=== PATIENT | female | born 1945 | race Caucasian/White ===

== ENCOUNTER → 2016-10-26 | Outpatient (CLI) | payer MEDICAID, MEDICARE | END | disposition home or self-care (01) | LOC: GMAH 10:04 | PROVIDERS: ATTEND Family Medicine | DX: E78.00 Pure hypercholesterolemia, unspecified (principal); N39.0 Urinary tract infection, site not specified ==

== ENCOUNTER → 2016-11-06 | Outpatient (CLI) | payer MEDICARE, MEDICAID ==
--- NOTE | 2016-11-06 10:58 | CT ---
EXAM DESCRIPTION: Lumbar Spine CLINICAL HISTORY: UNSPECIFIED FX OF SACRUM COMPARISON: 06 August 2016 TECHNIQUE: Transaxial images were obtained without intravenous contrast media. Sagittal and coronal reconstruction was performed. FINDINGS: Persistent mild anterolisthesis of L5 on S1 is observed.. A fracture of the S1 vertebral body is observed and remains essentially unchanged from the previous exam. Small nonobstructing right renal calculi are observed. Interbody fusion is observed at the L3-4 and L4-5 levels. Pedicle screw fusion is observed from L4 through S1 L1-2: Unremarkable. L2-3: Mild loss of disc height is observed. Ligamentous and facet joint hypertrophy are observed. There is a mild spinal stenosis present. It remains unchanged. L3-4: Interbody fusion is observed at this level. The fusion mass appears solid. No disc level pathology is detected though the imaging of this level is degraded by pedicle screw artifact. There is evidence of prior laminectomy. L4-5: Pedicle screw and interbody fusion is observed at this level. There is evidence of prior laminectomy. No disc level pathology is detected. The interbody fusion appears solid. No hardware failure is detected. L5-S1: A persistent anterolisthesis of L5 on S1 is observed. Pedicle screw fusion of the L5-S1 levels observed. There is loss of disc height at this level. I am unable to detect evidence of disc level pathology. Examination of the sacral fracture reveals slight evidence of interval healing. IMPRESSION: 1. Interbody fusion is observed at the L3-4 and L4-5 levels. 2. Pedicle screw fusion is observed from L4 through S1. 3. An S1 fractures observed. There has been minimal interval healing. 4. Anterolisthesis of L4-5 on S1 is observed. There is also mild anterolisthesis of the fracture at S1. Electronically signed by: Aaron Lockhart MD 11/06/2016 10:57 AM CDT
== END | disposition home or self-care (01) ==
LOC: CT 09:38
PROVIDERS: ATTEND Neurological Surgery
DX: S32.10XG Unspecified fracture of sacrum, subsequent encounter for fracture with delayed healing (principal)

== ENCOUNTER → 2016-12-01 | Outpatient (CLI) | payer MEDICARE ==
--- NOTE | 2016-12-03 09:43 | MAM ---
History: Well woman exam. Date of exam: 12/01/2016 Services provided: Bilateral full field digital screening mammography. CAD, the images were reviewed with R2 computer aided detection. FINDINGS: Glandular tissue is scattered glandular contour with increased retroareolar mammographic density. Study is compared with 2012 exam. No dominant mass, architectural distortion or clustered microcalcification. Radiodense material in the axillary soft tissues bilaterally is compatible with talc containing substance such as deodorant. IMPRESSION: Benign exam Recommendation: Routine annual mammography BIRAD CATEGORY: 2 BENIGN Electronically signed by: Agnes Byrd MD 12/03/2016 9:42 AM CDT
== END ==
LOC: MAMMO 13:30
PROVIDERS: ATTEND Family Medicine
DX: Z12.31 Encounter for screening mammogram for malignant neoplasm of breast (principal)

== ENCOUNTER → 2017-04-15 | Outpatient (CLI) | payer MEDICARE ==
--- NOTE | 2017-04-16 11:36 | RAD ---
EXAM DESCRIPTION: Elbow,Left 3 Views (accession [id number]), Forearm,Left (accession [id number]) CLINICAL HISTORY: 72 years Female, PAIN IN LEFT ELBOW COMPARISON: None. FINDINGS: The left forearm demonstrates no fractures. No acute bony abnormalities. Soft tissues are unremarkable. Elbows unremarkable no evidence of fractures. No joint effusion. There is a small enthesophyte at the biceps attachment site to the radius. IMPRESSION: Small enthesophyte to the distal attachment site of the biceps to the radius otherwise unremarkable forearm and elbow for age. Electronically signed by: Aaron Wen MD 04/16/2017 11:35 AM CDT
--- NOTE | 2017-04-16 11:36 | RAD ---
EXAM DESCRIPTION: Elbow,Left 3 Views (accession [id number]), Forearm,Left (accession [id number]) CLINICAL HISTORY: 72 years Female, PAIN IN LEFT ELBOW COMPARISON: None. FINDINGS: The left forearm demonstrates no fractures. No acute bony abnormalities. Soft tissues are unremarkable. Elbows unremarkable no evidence of fractures. No joint effusion. There is a small enthesophyte at the biceps attachment site to the radius. IMPRESSION: Small enthesophyte to the distal attachment site of the biceps to the radius otherwise unremarkable forearm and elbow for age. Electronically signed by: Aaron Wen MD 04/16/2017 11:35 AM CDT
== END ==
LOC: RAD 09:00
PROVIDERS: ATTEND Orthopaedic Surgery
DX: M79.632 Pain in left forearm (principal); M25.522 Pain in left elbow

== ENCOUNTER 2017-06-04 18:24 | Emergency (ER) | payer MEDICARE, MEDICAID ==
[2017-06-04] MEDS ORDERED: DEXTROSE 5% 1000ML 1,000 ML IVS PRN (18:34)
[2017-06-04] MEDS ORDERED: ACETAMINOPHEN 500 MG TAB PO ONE (18:34)
--- NOTE | 2017-06-04 18:37 | ED.PDOC ---
History of Present Illness - General Chief Complaint: Diabetic Complaint Stated Complaint: low blood sugar/almost passed out Time Seen by Provider: 06/04/17 18:27 Source: patient, RN notes reviewed, Vital Signs reviewed, EMS Exam Limitations: no limitations - History of Present Illness Initial Comments: Patient reports that @ ~16:30 her blood sugar dropped suddenly to 60. She became very diaphoretic, weak and felt like she was going to pass out. She took some oral glucose and ate 1/2 a peanut butter sandwich w/o improvement. Reports she barely made it over to her sisters house. When EMS arrived her blood sugar was 69. Currently she has a headache and feels weak. Fingerstick BS here was 79. Timing/Duration: 1-3 hours Severity: severe Improving Factors: nothing Worsening Factors: nothing Associated Symptoms: diaphoresis, headaches, malaise, shortness of breath, weakness Allergies/Adverse Reactions: Allergies Codeine Allergy (Severe, Verified 10/07/15 17:07) Sulfa Drugs Allergy (Severe, Verified 10/07/15 17:07) Morphine Adverse Reaction (Verified 02/02/16 19:31) "knocks patient out after too many doses" Home Medications: Ambulatory Orders Colestipol HCl 1 gm PO BID 03/08/14 Insulin Glargine [Lantus] 25 unit SC DAILY 03/08/14 Lisinopril 2.5 mg PO DAILY 03/08/14 Pravastatin Sodium [Pravachol] 20 mg PO BEDTIME 02/11/15 Review of Systems - Review of Systems Constitutional: States: diaphoresis, malaise, weakness EENTM: States: no symptoms reported Respiratory: States: short of breath Cardiology: States: no symptoms reported. Denies: chest pain Gastrointestinal/Abdominal: States: nausea. Denies: abdominal pain, vomiting Musculoskeletal: States: other - coccyx pain due to recent fracture Skin: States: no symptoms reported Neurological: States: headache, other - near-syncope Endocrine: States: excessive sweating All other Systems: No Change from Baseline Past Medical History (General) - Patient Medical History Hx Stroke: Yes Hx Cardiac Disorders: Yes Hx Congestive Heart Failure: No Hx Hypertension: Yes Hx Diabetes: Yes Hx MRSA: No - Vaccination History Hx Tetanus, Diphtheria Vaccination: Yes Hx Influenza Vaccination: No Hx Pneumococcal Vaccination: Yes Immunizations Up to Date: Yes - Social History Hx Tobacco Use: No Hx Chewing Tobacco Use: No Hx Alcohol Use: No Hx Substance Use: No Hx Substance Use Treatment: No Hx Depression: No Feels Threatened In Home Enviroment: No Feels Threatened In a Relationship: No Hx Physical Abuse: No Hx Emotional Abuse: No Hx Suspected Abuse: No - Activities of Daily Living Hospice Agency (if applicable):: None - Female History Patient is a Female of Child Bearing Age (10 -59 yrs old): No Patient : No Family Medical History - Family History Mother Family History: No Known Living Status: Physical Exam - Physical Exam General Appearance: Alert, Comfortable, No apparent distress, Well Developed, Well Groomed, Well Hydrated, Well Nourished Eye Exam: bilateral normal Ears, Nose, Throat: hearing grossly normal, normal ENT inspection Neck: supple, normal inspection Respiratory: lungs clear, normal breath sounds, no respiratory distress, no accessory muscle use Cardiovascular/Chest: normal peripheral pulses, regular rate, rhythm, no edema, no gallop, no murmur Peripheral Pulses: radial,right: 2+, radial,left: 2+, dorsalis pedis,right: 2+, dorsalis pedis,left: 2+ Gastrointestinal/Abdominal: normal bowel sounds, non tender, soft, no organomegaly Extremity: normal inspection, no pedal edema Neurologic: alert, normal mood/affect, oriented x 3 Skin Exam: diaphoresis Comments: Vital Signs 06/04/17 18:24 Temperature 97.8 F Pulse Rate [ 77 Right Brachial] Respiratory 20 Rate Blood Pressure 183/78 [Left Arm] O2 Sat by Pulse 100 Oximetry Progress - Progress Progress: 06/04/17 19:13 Now reports she is feeling nauseated. D5W running @ 150cc/hr. Will given Zofran 4mg IV 06/04/17 20:06 Repeat fasting blood sugar is 129. Will stop D5W and restart NS bolus started by EMS. Patient reports she is feeling a little better, just fatigued. 06/04/17 21:09 Patient is feeling better. Blood sugar 112. Gave orange juice and cookies. Will d/c home. Recommended something with protein and fat at home. - Results/Orders Results/Orders: Laboratory Tests 06/04/17 06/04/17 06/04/17 16:55 16:55 19:59 WBC 8.1 RBC 4.04 L Hgb 12.5 Hct 36.4 MCV 90.3 MCH 30.9 MCHC 34.3 RDW 12.8 Plt Count 295 MPV 7.7 Absolute Neuts (auto) 5.90 Absolute Lymphs (auto) 1.20 Absolute Monos (auto) 0.80 Absolute Eos (auto) 0.10 Absolute Basos (auto) 0.00 Neutrophils % 73.1 Lymphocytes % 15.1 L Monocytes % 10.4 H Eosinophils % 0.9 L Basophils % 0.5 Sodium 134 L Potassium 3.0 L Chloride 97 L Carbon Dioxide 26 Anion Gap 14.0 BUN 14 Creatinine 0.66 BUN/Creatinine Ratio 21.2 H POC Glucose 129 H Random Glucose 60 L Serum Osmolality 266.6 L Calcium 9.3 Total Bilirubin 0.2 AST 22 ALT 13 Alkaline Phosphatase 73 Creatine Kinase 125 CK-MB (CK-2) 2.8 CK-MB (CK-2) % Not Reportable Troponin I < 0.02 Serum Total Protein 8.0 Albumin 4.1 Globulin 3.9 H Albumin/Globulin Ratio 1.1 06/04/17 20:52 WBC RBC Hgb Hct MCV MCH MCHC RDW Plt Count MPV Absolute Neuts (auto) Absolute Lymphs (auto) Absolute Monos (auto) Absolute Eos (auto) Absolute Basos (auto) Neutrophils % Lymphocytes % Monocytes % Eosinophils % Basophils % Sodium Potassium Chloride Carbon Dioxide Anion Gap BUN Creatinine BUN/Creatinine Ratio POC Glucose 112 H Random Glucose Serum Osmolality Calcium Total Bilirubin AST ALT Alkaline Phosphatase Creatine Kinase CK-MB (CK-2) CK-MB (CK-2) % Troponin I Serum Total Protein Albumin Globulin Albumin/Globulin Ratio - EKG/XRAY/CT EKG: Sinus, no ST T wave changes Comments: Rate 73 Departure - Departure Clinical Impression: Hypoglycemia Time of Disposition: 21:10 Disposition: Discharge to Home or Self Care Condition: Good Departure Forms: ED Discharge - Pt. Copy, Patient Portal Self Enrollment Instructions: DI for Hypoglycemia Diet: diabetic diet Activity: increase activity as tolerated Referrals: Cayetano Harding MD [Primary Care Provider] - 1-2 Weeks (Need to discuss adjusting insulin dose.) Home Medications: Ambulatory Orders Colestipol HCl 1 gm PO BID 03/08/14 Insulin Glargine [Lantus] 25 unit SC DAILY 03/08/14 Lisinopril 2.5 mg PO DAILY 03/08/14 Pravastatin Sodium [Pravachol] 20 mg PO BEDTIME 02/11/15
[2017-06-04] MEDS ORDERED: POTASSIUM CHLORIDE 20 MEQ TAB PO ONE (19:03)
[2017-06-04] MEDS ORDERED: ONDANSETRON INJ 4 MG/2 ML VIAL ONE (19:12)
[2017-06-04] MEDS ORDERED: ONDANSETRON INJ 4 MG/2 ML VIAL IV ONE (19:13)
[2017-06-04 21:24] VITALS: BP 143/69; TEMP 97.8; O2SAT 97
== END 2017-06-04 21:24 | disposition home or self-care (01) ==
LOC: ER 18:24
DX: E11.649 Type 2 diabetes mellitus with hypoglycemia without coma (principal); I10 Essential (primary) hypertension; Z86.73 Personal history of transient ischemic attack (TIA), and cerebral infarction without residual deficits; Z79.4 Long term (current) use of insulin; Z88.6 Allergy status to analgesic agent; Z88.2 Allergy status to sulfonamides
CPT/HCPCS: 36415; 36416; 80053; 82550; 82553; 82948; 84484; 85025; 93005; J2405; J7060

== ENCOUNTER → 2017-12-27 | Outpatient (CLI) | payer MEDICARE, MEDICAID ==
--- NOTE | 2017-12-29 13:54 | MAM ---
EXAM DESCRIPTION: 3D Screening BILATERAL : Digital Mammography. CLINICAL HISTORY: 72 years Female SCREEN . No complaints. Mother with ovarian cancer. No family history of breast cancer. Postmenopausal. No HRT. COMPARISON: 2-D digital screening bilateral study 12/01/2016. Report from prior examination also reviewed. TECHNIQUE: Bilateral CC and MLO projection full-field images, 3-D tomosynthesis digital mammographic technique. Also bilateral synthesized CC/ MLO full-field images. CAD not utilized. FINDINGS: The breast parenchymal density pattern is: Heterogeneously dense breast tissue, which may obscure small masses. No skin thickening or nipple retraction . Dense fibroglandular tissues in the anterior third of both breasts bilaterally. Bilateral solitary microcalcifications and coarse calcifications. Bilateral vascular calcifications. No focal, stellate mass or density, focal asymmetry , and no suspicious microcalcifications bilaterally. Stable mammograms compared to prior study, taking into account differences in mammographic technique IMPRESSION: BI-RADS CATEGORY: 2 - BENIGN FINDINGS. FOLLOW UP: Routine digital bilateral screening, one year interval from December 2017. Written communication explaining the IMPRESSION and follow-up, will be mailed to the patient and referring health care provider. According to the [employer], yearly mammograms are recommended starting at age 40 and continuing as long as a woman is in good health. Any breast change noted on a breast self-exam should be reported promptly to the patient's healthcare provider. Breast MRI is recommended for women with an approximately 20-25% or greater lifetime risk of breast cancer, including women with a strong family history of breast or ovarian cancer and women who have been treated for Hodgkin's disease. A negative mammographic report should not delay tissue diagnosis in patients with significant clinical history or physical findings. Extremely dense breast tissue limits the sensitivity of digital mammography. Electronically signed by: Marlon Gage MD 12/29/2017 1:53 PM CDT
== END ==
LOC: MAMMO 11:00
PROVIDERS: ATTEND Family Medicine
DX: Z12.31 Encounter for screening mammogram for malignant neoplasm of breast (principal)

== ENCOUNTER → 2018-02-09 | Outpatient (CLI) | payer MEDICARE, MEDICAID | LOC: GMAH 10:52 | PROVIDERS: ATTEND Family Medicine | DX: E78.2 Mixed hyperlipidemia (principal); I10 Essential (primary) hypertension; N39.0 Urinary tract infection, site not specified ==

== ENCOUNTER → 2019-02-13 | Outpatient (CLI) | payer MEDICARE, MEDICAID | LOC: GMAH 12:41 | PROVIDERS: ATTEND Family Medicine | DX: I10 Essential (primary) hypertension (principal); E11.9 Type 2 diabetes mellitus without complications ==

== ENCOUNTER → 2019-08-31 | Outpatient (CLI) | payer MEDICARE, MEDICAID ==
--- NOTE | 2019-08-31 13:24 | RAD ---
EXAM DESCRIPTION: Shoulder,Right 2 or More Views CLINICAL HISTORY: PAIN IN RIGHT SHOULDER COMPARISON: None. IMPRESSION: 3 views of the right shoulder show no acute fracture, focal bone destruction, or joint dislocation. Osseous structures are diffusely osteopenic. Moderate osteoarthritic changes of the right acromioclavicular joint are seen with mild osteoarthritic changes of the glenohumeral joint. Electronically signed by: Georges Burns MD 08/31/2019 1:23 PM [facility]
== END ==
LOC: RAD 09:38
PROVIDERS: ATTEND Orthopaedic Surgery
DX: M19.011 Primary osteoarthritis, right shoulder (principal); M85.811 Other specified disorders of bone density and structure, right shoulder

== ENCOUNTER → 2019-12-21 | Outpatient (CLI) | payer MEDICARE, MEDICAID ==
--- NOTE | 2019-12-21 09:48 | RAD ---
EXAM DESCRIPTION: Fingers,Right CLINICAL HISTORY: PAIN IN RIGHT FINGERS COMPARISON: None. TECHNIQUE: 3 views right fifth digit FINDINGS: Distal interphalangeal joint arthritis is observed in the fifth digit. Mild osteopenia is observed. There is some mild distal soft tissue swelling present. Mild degenerative changes are observed in the proximal interphalangeal joint. No fracture is detected. IMPRESSION: Degenerative changes are observed most pronounced in the distal inner phalangeal joint. No fracturing is detected. Electronically signed by: Aaron Lockhart MD 12/21/2019 9:47 AM CDT
--- NOTE | 2019-12-21 09:50 | RAD ---
EXAM DESCRIPTION: Hand,Right 3 Views CLINICAL HISTORY: PAIN IN RIGHT HAND COMPARISON: None. TECHNIQUE: 3 views right FINDINGS: Degenerative changes are observed in the trigone or fibrocartilage. Distal interphalangeal joint arthritis is observed throughout the hand. No fracturing is detected. IMPRESSION: Degenerative changes are observed most pronounced in the fifth digit. No fracturing is detected. Electronically signed by: Aaron Lockhart MD 12/21/2019 9:48 AM CDT
== END ==
LOC: RAD 08:58
PROVIDERS: ATTEND Orthopaedic Surgery
DX: M19.041 Primary osteoarthritis, right hand (principal)

== ENCOUNTER → 2020-01-02 | Outpatient (CLI) | payer MEDICARE, MEDICAID | LOC: LAB.O 09:42 | PROVIDERS: ATTEND Orthopaedic Surgery | DX: Z01.818 Encounter for other preprocedural examination (principal) ==

== ENCOUNTER 2020-01-10 05:33 | Day surgery (SDC) | payer MEDICARE, MEDICAID ==
[2020-01-10] MEDS ORDERED: MIDAZOLAM INJ 2 MG/2 ML VIAL ONE (07:00)
[2020-01-10] MEDS ORDERED: DEXAMETHASONE INJ 10 MG/ML VIAL ONE (07:00)
[2020-01-10] MEDS ORDERED: PROPOFOL 200 MG/20 ML VIAL IV ONE (07:00)
[2020-01-10] MEDS ORDERED: LIDOCAINE 1% 10 ML VIAL INJ ONE ×2 (07:00→07:48)
[2020-01-10] MEDS ORDERED: VANCOMYCIN HCL INJ 1,000 MG VIAL IVPB ONE (07:48)
[2020-01-10] MEDS ORDERED: ceFAZolin SODIUM 1 GM VIAL IRRIG ONE (07:48)
[2020-01-10] MEDS ORDERED: BUPIVACAINE 0.25% INJ 30 ML VIAL INJ ONE (07:48)
[2020-01-10 09:28] VITALS: BP 169/86; TEMP 97.3; O2SAT 96
--- NOTE | 2020-01-17 09:49 | OP ---
DATE OF PROCEDURE: 01/10/20 PREOPERATIVE DIAGNOSIS; 1. Mucoid cyst of right fifth digit, distal interphalangeal joint. 2. Osteophyte, right fifth digit. POSTOPERATIVE DIAGNOSIS: 1. Mucoid cyst of right fifth digit, distal interphalangeal joint. 2. Osteophyte, right fifth digit. PROCEDURE: 1. Excision of cyst. 2. Excision of osteophyte. SURGEON: Chase Tobin MD. SAWDUST DRIER: Marlon Siddiqui CST, SA-C. ANESTHESIA: Local with sedation. COMPLICATIONS: None. FINDINGS: 1. Mucoid cyst extending from the distal interphalangeal joint and the dorsum of the digit. 2. Large osteophyte off the distal phalanx at the level of the distal interphalangeal joint on the ulnar border of the digit. INDICATION: Ms. Hernandez has a history of a cyst that has been draining intermittently. She also has pain secondary to an osteophyte on the lateral aspect of the digit. I spoke with Ms. Hernandez about her diagnoses and the treatment options she has available to her. She elected to undergo excision of both the cyst and the osteophyte. After discussing the risks, benefits and alternatives to that, she gave informed consent. DESCRIPTION OF PROCEDURE: The patient was brought to the Operating Room and placed in supine position. Sedation was administered and a ring block was performed on the digit under sterile conditions. The hand was sterilely prepped and draped and a vertical incision was made radial to the cyst and the flap was elevated. Care was taken to not puncture through the skin and the base of the cyst was identified extending from the DIP joint. The cyst itself was removed an d the area was cauterized. The flap was carefully reapproximated with Nylon suture. Attention was then focused on the ulnar aspect of the digit where an incision directly overlying the osteophyte. Dissection was carried down to the osteophyte which was sharply removed with a rongeur. Following that, the wound was thoroughly irrigated and closed with Nylon suture. Sterile dressings were placed. The patient was then taken back to the Day Surgery Unit. POSTOPERATIVE PLAN: She will followup with us in two days. #[id number] MTDD
== END 2020-01-10 09:20 | disposition home or self-care (01) ==
LOC: AMB 05:33
PROVIDERS: ATTEND Orthopaedic Surgery
DX: M85.671 Other cyst of bone, right ankle and foot (principal); M25.774 Osteophyte, right foot; I10 Essential (primary) hypertension; E11.9 Type 2 diabetes mellitus without complications; K21.9 Gastro-esophageal reflux disease without esophagitis; E66.9 Obesity, unspecified; Z88.5 Allergy status to narcotic agent; Z79.899 Other long term (current) drug therapy; Z88.2 Allergy status to sulfonamides; Z79.4 Long term (current) use of insulin
CPT/HCPCS: 01470; 28090; 28092; 36416; 80307; 82948; J0690; J1100; J2250; J3370; J3490

== ENCOUNTER → 2020-05-09 | Outpatient (CLI) | payer MEDICARE, MEDICAID ==
--- NOTE | 2020-05-10 10:46 | RAD ---
EXAM DESCRIPTION: Arthrogram Shoulder Right: RF CLINICAL HISTORY: ROTATOR CUFF SYNDROME COMPARISON: Post-arthrogram CT scan of the right shoulder same date. TECHNIQUE: The procedure was performed by Dr. Gage. Timeout was initiated to confirm identification of patient, body part, and examination. Explained to the patient with risks and benefits. The patient gave verbal and written consent. Contrast mixture of 10 mL non-ionic 300 contrast and 10 mL of sterile normal saline was prepared. Patient supine on the fluoroscopic table with right shoulder in external rotation. The anterior mid superior right glenohumeral joint was localized by fluoroscopy. The skin was marked, then prepped and draped in a sterile fashion. Intradermal, subcutaneous and intramuscular 1% Xylocaine was given for topical anesthesia. A 1.5 inch 25-gauge needle was introduced into the anterior superior right glenohumeral joint capsule under fluoroscopic visualization. A test injection of 2 cc of non-ionic 300 was performed under fluoroscopy. Additional 8 CC of contrast mixture was then injected under fluoroscopy. The patient tolerated the procedure well. Patient was transferred to the CT suite for spiral-axial and reconstruction imaging. No immediate complications. 1 image right shoulder in external rotation recorded for the patient's permanent medical record. Total fluoroscopic time was 0.9 minutes DAP: 2.0 Gy-cm2. Dose 16.2 mGy. IMPRESSION: Successful, fluoroscopically guided arthrogram of the right shoulder performed by Dr. Gage. Distribution of contrast after the injection suggests a massive rotator cuff tear. Electronically signed by: Marlon Gage MD 05/10/2020 10:44 AM CDT
--- NOTE | 2020-05-13 10:50 | CT ---
Study: CT Arthrogram of the Right Shoulder. Indication: ROTATOR CUFF SYNDROME Technique: Axial CT of the right shoulder was performed after intra-articular injection of contrast. Coronal and sagittal reformats performed. Please see the accompanying report regarding the procedural portion of this exam. This exam was performed according to our departmental dose-optimization program, which includes automated exposure control, adjustment of the mA and/or kV according to patient size and/or use of iterative reconstruction technique. Comparison: None. Findings: Severe hypertrophic AC joint osteoarthritis. Type II acromion. Large volume subacromial/subdeltoid bursal contrast. Irregular full-thickness, fullwidth supraspinatus tendon tearing with retraction of torn tendon fibers to the level of the midline humeral head. Infraspinatus and subscapularis tendinosis with rupture. Mild atrophy and grade 1 fatty infiltration supraspinatus muscle belly. Long head biceps tendon not visualized and is likely torn and distally retracted. Circumferential Labral Truncation And Fraying. Mild Glenohumeral Joint Osteoarthritis. No Acute Fracture. Impression: Full-thickness, full width mildly retracted supraspinatus tendon tearing. Infraspinatus and subscapularis tendinosis without tear. Circumferential labral truncation and fraying. Mild glenohumeral joint osteoarthritis. Severe AC joint osteoarthritis. Electronically signed by: Nick Solares MD 05/13/2020 10:48 AM CDT
== END ==
LOC: CT 09:00
PROVIDERS: ATTEND Orthopaedic Surgery
DX: M75.101 Unspecified rotator cuff tear or rupture of right shoulder, not specified as traumatic (principal); S43.431A Superior glenoid labrum lesion of right shoulder, initial encounter; M75.81 Other shoulder lesions, right shoulder; M19.011 Primary osteoarthritis, right shoulder

== ENCOUNTER → 2020-07-11 | Outpatient (CLI) | payer MEDICARE, MEDICAID | LOC: GMA MATASK 10:56 | PROVIDERS: ATTEND Family Medicine | DX: I10 Essential (primary) hypertension (principal); E11.9 Type 2 diabetes mellitus without complications ==

== ENCOUNTER → 2020-07-26 | Outpatient (CLI) | payer MEDICARE, MEDICAID ==
--- NOTE | 2020-07-29 10:12 | CT ---
EXAM DESCRIPTION: CT right shoulder CLINICAL HISTORY: Shoulder pain COMPARISON: CT arthrogram 05/09/2020 TECHNIQUE: Spiral CT with multiplanar reformatted images. This exam was performed according to our departmental dose-optimization program, which includes automated exposure control, adjustment of the mA and/or kV according to patient size and/or use of iterative reconstruction technique. FINDINGS: Severe acromioclavicular osteoarthritis with osteophytes indenting the supraspinatus. Subacromial enthesophyte and large contiguous inferior acromial spur. Evidence of full-thickness supraspinatus tendon tear and retraction to the medial humeral level. Moderate to severe muscle volume loss and grade 2 fatty infiltration Infraspinatus muscle volume is mildly decreased with grade 1 fatty infiltration. Not a detailed evaluation of the tendon. No complete tendon tear or retraction. Teres minor tendon and muscle appear normal. Subscapularis calcific tendinosis. Muscle volume mildly decreased with grade 1 fatty infiltration. Large volume subcoracoid bursal fluid No advanced glenohumeral arthrosis. Small sublabral glenoid osteophyte rim superior and anterior primarily. No glenoid remodeling or loss of glenoid bone stock. Small inferior medial humeral head osteophyte Non-MSK: No mass or adenopathy in the visualized right upper chest. No acute inflammatory process IMPRESSION: Severe acromioclavicular osteoarthritis, subacromial enthesophyte and acromial spur. Subscapularis calcific tendinosis. Large volume subcoracoid bursal fluid Complete supraspinatus tendon tear. This was seen on previous CT arthrogram as well Electronically signed by: Jose Johnson MD 07/29/2020 10:11 AM [facility]
== END ==
LOC: CT 08:36
PROVIDERS: ATTEND Orthopaedic Surgery
DX: M19.011 Primary osteoarthritis, right shoulder (principal); M75.101 Unspecified rotator cuff tear or rupture of right shoulder, not specified as traumatic; M75.51 Bursitis of right shoulder; M75.31 Calcific tendinitis of right shoulder; M25.711 Osteophyte, right shoulder; M77.9 Enthesopathy, unspecified

== ENCOUNTER → 2020-08-13 | Outpatient (CLI) | payer MEDICARE, MEDICAID | LOC: LAB.O 11:06 | PROVIDERS: ATTEND Orthopaedic Surgery | DX: Z01.818 Encounter for other preprocedural examination (principal) ==

== ENCOUNTER 2020-09-27 22:43 | Emergency (ER) | payer MEDICARE, MEDICAID ==
--- NOTE | 2020-09-27 22:47 | ED.PDOC ---
History of Present Illness - General Time Seen by Provider: 09/27/20 22:47 - History of Present Illness Allergies/Adverse Reactions: Allergies Codeine Allergy (Severe, Verified 10/07/15 17:07) Sulfa Drugs Allergy (Severe, Verified 10/07/15 17:07) Home Medications: Ambulatory Orders Colestipol HCl 1 gm PO BID 03/08/14 Insulin Glargine [Lantus] 5 unit SC BID 03/08/14 Lisinopril 10 mg PO DAILY 03/08/14 Pravastatin Sodium [Pravachol] 20 mg PO BEDTIME 02/11/15 Albuterol Inhaler [Ventolin Hfa Inhaler] 1 puff INH PRN PRN 01/08/20 Dicyclomine HCl [Dicyclomine Hydrochloride] 10 mg PO BID 01/08/20 Insulin Lispro [Humalog] See Protocol SUBCU PRN 01/08/20 Linagliptin-Metformin HCl [Jentadueto 2.5-500 mg] 1 tablet PO BID 01/08/20 Past Medical History (General) - Patient Medical History Hx Stroke: Yes Hx Cardiac Disorders: Yes Hx Congestive Heart Failure: No Hx Hypertension: Yes Hx Diabetes: Yes - FSBS 117 Hx MRSA: No - Vaccination History Hx Tetanus, Diphtheria Vaccination: Yes Hx Influenza Vaccination: No Hx Pneumococcal Vaccination: Yes - Social History Hx Tobacco Use: No Hx Chewing Tobacco Use: No Hx Alcohol Use: No Hx Substance Use: No Hx Substance Use Treatment: No Hx Depression: No Hx Physical Abuse: No Hx Emotional Abuse: No Hx Suspected Abuse: No - Female History Patient : No Family Medical History - Family History Mother Family History: No Known Living Status: Cause of : cancer Hx Family Hypertension: Yes Departure - Departure Disposition: Discharge to Home or Self Care Referrals: Yoshi Ybarra MD [Primary Care Provider] - 1-2 Weeks Home Medications: Ambulatory Orders Colestipol HCl 1 gm PO BID 03/08/14 Insulin Glargine [Lantus] 5 unit SC BID 03/08/14 Lisinopril 10 mg PO DAILY 03/08/14 Pravastatin Sodium [Pravachol] 20 mg PO BEDTIME 02/11/15 Albuterol Inhaler [Ventolin Hfa Inhaler] 1 puff INH PRN PRN 01/08/20 Dicyclomine HCl [Dicyclomine Hydrochloride] 10 mg PO BID 01/08/20 Insulin Lispro [Humalog] See Protocol SUBCU PRN 01/08/20 Linagliptin-Metformin HCl [Laverntadumilady 2.5-500 mg] 1 tablet PO BID 01/08/20
--- NOTE | 2020-09-27 22:53 | ED.PDOC ---
History of Present Illness - General Chief Complaint: Trauma Stated Complaint: Shoulder pain after fall Time Seen by Provider: 09/27/20 22:47 - History of Present Illness Allergies/Adverse Reactions: Allergies Codeine Allergy (Severe, Verified 10/07/15 17:07) Sulfa Drugs Allergy (Severe, Verified 10/07/15 17:07) Home Medications: Ambulatory Orders Colestipol HCl 1 gm PO BID 03/08/14 Insulin Glargine [Lantus] 5 unit SC BID 03/08/14 Lisinopril 10 mg PO DAILY 03/08/14 Pravastatin Sodium [Pravachol] 20 mg PO BEDTIME 02/11/15 Albuterol Inhaler [Ventolin Hfa Inhaler] 1 puff INH PRN PRN 01/08/20 Dicyclomine HCl [Dicyclomine Hydrochloride] 10 mg PO BID 01/08/20 Insulin Lispro [Humalog] See Protocol SUBCU PRN 01/08/20 Linagliptin-Metformin HCl [Jentadueto 2.5-500 mg] 1 tablet PO BID 01/08/20 Past Medical History (General) - Patient Medical History Hx Stroke: Yes Hx Cardiac Disorders: Yes Hx Congestive Heart Failure: No Hx Hypertension: Yes Hx Diabetes: Yes - FSBS 117 Hx MRSA: No - Vaccination History Hx Tetanus, Diphtheria Vaccination: Yes Hx Influenza Vaccination: No Hx Pneumococcal Vaccination: Yes - Social History Hx Tobacco Use: No Hx Chewing Tobacco Use: No Hx Alcohol Use: No Hx Substance Use: No Hx Substance Use Treatment: No Hx Depression: No Hx Physical Abuse: No Hx Emotional Abuse: No Hx Suspected Abuse: No - Female History Patient : No Family Medical History - Family History Mother Family History: No Known Living Status: Cause of : cancer Hx Family Hypertension: Yes Departure - Departure Disposition: Discharge to Home or Self Care Condition: Fair Referrals: Yoshi Ybarra MD [Primary Care Provider] - 1-2 Weeks Home Medications: Ambulatory Orders Colestipol HCl 1 gm PO BID 03/08/14 Insulin Glargine [Lantus] 5 unit SC BID 03/08/14 Lisinopril 10 mg PO DAILY 03/08/14 Pravastatin Sodium [Pravachol] 20 mg PO BEDTIME 02/11/15 Albuterol Inhaler [Ventolin Hfa Inhaler] 1 puff INH PRN PRN 01/08/20 Dicyclomine HCl [Dicyclomine Hydrochloride] 10 mg PO BID 01/08/20 Insulin Lispro [Humalog] See Protocol SUBCU PRN 01/08/20 Linagliptin-Metformin HCl [Jentadueto 2.5-500 mg] 1 tablet PO BID 01/08/20
--- NOTE | 2020-09-27 22:57 | ED.PDOC ---
History of Present Illness - General Chief Complaint: Trauma Stated Complaint: Shoulder pain after fall Time Seen by Provider: 09/27/20 22:47 Additional Information: EMS gave patient fentanyl 100 mcg and Zofran 4 mg prior to arrival. Patient has known allergy to codeine but cannot tolerate morphine and all other narcotics to the best of her knowledge. - History of Present Illness Initial Comments: Patient states that she tripped over her dogs at home shortly prior to admission causing her to fall. She landed on her left shoulder and both knees. Patient complains of severe pain in the left shoulder. It is previously had surgery performed on it. Patient deniesHead injury, loss of consciousness confusion or disorientation. She denies neck or back pain, chest pain, abdominal pain. She does have some abrasions to both knees. Occurred: just prior to arrival Severity: severe Pain Location: upper extremity Method of Injury: fall Improving Factors: rest Worsening Factors: movement Loss of Consciousness: no loss of consciousness Associated Symptoms (Fall): denies symptoms Allergies/Adverse Reactions: Allergies Codeine Allergy (Severe, Verified 10/07/15 17:07) Sulfa Drugs Allergy (Severe, Verified 10/07/15 17:07) Home Medications: Ambulatory Orders Colestipol HCl 1 gm PO BID 03/08/14 Insulin Glargine [Lantus] 5 unit SC BID 03/08/14 Lisinopril 10 mg PO DAILY 03/08/14 Pravastatin Sodium [Pravachol] 20 mg PO BEDTIME 02/11/15 Albuterol Inhaler [Ventolin Hfa Inhaler] 1 puff INH PRN PRN 01/08/20 Dicyclomine HCl [Dicyclomine Hydrochloride] 10 mg PO BID 01/08/20 Insulin Lispro [Humalog] See Protocol SUBCU PRN 01/08/20 Linagliptin-Metformin HCl [Jentadueto 2.5-500 mg] 1 tablet PO BID 01/08/20 Review of Systems - Review of Systems Constitutional: States: no symptoms reported EENTM: States: no symptoms reported Respiratory: States: no symptoms reported Cardiology: States: no symptoms reported Gastrointestinal/Abdominal: States: no symptoms reported Genitourinary: States: no symptoms reported Musculoskeletal: States: see HPI Skin: States: no symptoms reported Neurological: States: no symptoms reported Endocrine: States: no symptoms reported Hematologic/Lymphatic: States: no symptoms reported Past Medical History (General) - Patient Medical History Hx Stroke: Yes Hx Cardiac Disorders: Yes Hx Congestive Heart Failure: No Hx Hypertension: Yes Hx Diabetes: Yes - FSBS 117 Hx MRSA: No - Vaccination History Hx Tetanus, Diphtheria Vaccination: Yes Hx Influenza Vaccination: No Hx Pneumococcal Vaccination: Yes - Social History Hx Tobacco Use: No Hx Chewing Tobacco Use: No Hx Alcohol Use: No Hx Substance Use: No Hx Substance Use Treatment: No Hx Depression: No Hx Physical Abuse: No Hx Emotional Abuse: No Hx Suspected Abuse: No - Female History Patient : No Family Medical History - Family History Mother Family History: No Known Living Status: Cause of : cancer Hx Family Hypertension: Yes Physical Exam - Physical Exam General Appearance: Alert, Comfortable Head Injury: no evidence of injury Eye Exam: bilateral normal ENT Exam: hearing grossly normal, no evidence of ENT injury Neck Exam: non-tender, full range of motion Cardiovascular/Respiratory: no M/R/G Gastrointestinal/Abdominal: normal bowel sounds, non tender, soft Back Exam: normal inspection, no vertebral tenderness Extremity Exam: other Neurologic: no motor/sensory deficits, alert, oriented x 3 - Left shoulder with slight swelling and minimal deformity, very tender, very painful movement. Left clavicle minimally tender without deformity. Distal neurovascular functions are intact. Skin Exam: normal color - Ember Coma Score Best Eye Response (Sebree): (4) open spontaneously Best Verbal Response (Sebree): (5) oriented Best Motor Response (Sebree): (6) obeys commands Progress - Progress Progress: 09/27/20 23:[address] Kemp, the patient's orthopedist at 11:36 PM. He requested a coaptation splint for the left humerus and follow-up With him on Wednesday. 09/27/20 23:45 A splint and sling and swath were applied - Results/Orders Results/Orders: EXAM DESCRIPTION: Shoulder,Left 2 or More Views (accession [id number]), Humerus,Left (accession [id number]) CLINICAL HISTORY: 75 years Female, Fall, Trauma COMPARISON: None. FINDINGS/IMPRESSION: Mildly comminuted fracture of the proximal humerus. No intra-articular extension. No dislocation. Diffuse osteopenia. Rotator cuff anchors are noted. Electronically signed by: Bairon Arreaga DO 09/27/2020 11:32 PM [facility] [employer] EXAM DESCRIPTION: Shoulder,Left 2 or More Views (accession [id number]), Humerus,Left (accession [id number]) CLINICAL HISTORY: 75 years Female, Fall, Trauma COMPARISON: None. FINDINGS/IMPRESSION: Mildly comminuted fracture of the proximal humerus. No intra-articular extension. No dislocation. Diffuse o steopenia. Rotator cuff anchors are noted. Electronically signed by: Bairon Arreaga DO 09/27/2020 11:32 PM [employer] [facility] Vital Signs - 24 hr 09/27/20 09/27/20 09/28/20 22:54 23:43 00:40 Temperature 97.4 F L 97.3 F L 97.2 F L Pulse Rate 84 Pulse Rate [ 84 74 84 Right Radial] Respiratory 18 16 18 Rate Blood Pressure 203/115 164/88 162/84 [Right Arm] O2 Sat by Pulse 98 97 98 Oximetry Departure - Departure Clinical Impression: Fracture, humerus closed, shaft Qualifiers: Encounter type: initial encounter Fracture morphology: spiral Fracture alignment: nondisplaced Laterality: left Qualified Code(s): S42.345A - Nondisplaced spiral fracture of shaft of humerus, left arm, initial encounter for closed fracture Fall Qualifiers: Encounter type: initial encounter Qualified Code(s): W19.XXXA - Unspecified fall, initial encounter Time of Disposition: 23:46 Disposition: Discharge to Home or Self Care Condition: Fair Departure Forms: ED Discharge - Pt. Copy, Patient Portal Self Enrollment Instructions: Upper Arm Fracture Diet: resume usual diet Activity: other - Rest and avoid unnecessary activity to reduce pain in the broken arm. Referrals: Yoshi Ybarra MD [Primary Care Provider] - 1-2 Weeks Home Medications: Ambulatory Orders Colestipol HCl 1 gm PO BID 03/08/14 Insulin Glargine [Lantus] 5 unit SC BID 03/08/14 Lisinopril 10 mg PO DAILY 03/08/14 Pravastatin Sodium [Pravachol] 20 mg PO BEDTIME 02/11/15 Albuterol Inhaler [Ventolin Hfa Inhaler] 1 puff INH PRN PRN 01/08/20 Dicyclomine HCl [Dicyclomine Hydrochloride] 10 mg PO BID 05/18/20 Insulin Lispro [Humalog] See Protocol SUBCU PRN 01/08/20 Linagliptin-Metformin HCl [Jentadueto 2.5-500 mg] 1 tablet PO BID 01/08/20 Additional Instructions: Contact Dr. Tobin, orthopedist On Wednesday to arrange for further care of this broken bone. Be careful of falls, particularly if you are taking medicine for pain. Start with Tylenol only take the stronger pill if needed. If you develop any swelling or numbness of your left hand then return immediately to the emergency department.
--- NOTE | 2020-09-27 23:33 | RAD ---
EXAM DESCRIPTION: Shoulder,Left 2 or More Views (accession [id number]), Humerus,Left (accession [id number]) CLINICAL HISTORY: 75 years Female, Fall, Trauma COMPARISON: None. FINDINGS/IMPRESSION: Mildly comminuted fracture of the proximal humerus. No intra-articular extension. No dislocation. Diffuse osteopenia. Rotator cuff anchors are noted. Electronically signed by: Bairon Arreaga DO 09/27/2020 11:32 PM [facility]
--- NOTE | 2020-09-27 23:34 | RAD ---
EXAM DESCRIPTION: Shoulder,Left 2 or More Views (accession [id number]), Humerus,Left (accession [id number]) CLINICAL HISTORY: 75 years Female, Fall, Trauma COMPARISON: None. FINDINGS/IMPRESSION: Mildly comminuted fracture of the proximal humerus. No intra-articular extension. No dislocation. Diffuse osteopenia. Rotator cuff anchors are noted. Electronically signed by: Bairon Arreaga DO 09/27/2020 11:32 PM [facility]
[2020-09-27] MEDS ORDERED: MORPHINE SULFATE INJ 10 MG/ML VIAL IV ONE (23:53)
[2020-09-28] MEDS ORDERED: traMADol HCL 50 MG (ER DISP) # 6 TABS PO SCH (00:30)
[2020-09-28 00:44] VITALS: BP 162/84; TEMP 97.2; O2SAT 98
== END 2020-09-28 00:44 | disposition home or self-care (01) ==
LOC: ER 22:43
DX: S42.345A Nondisplaced spiral fracture of shaft of humerus, left arm, initial encounter for closed fracture (principal); E11.9 Type 2 diabetes mellitus without complications; I10 Essential (primary) hypertension; I51.9 Heart disease, unspecified; Z86.73 Personal history of transient ischemic attack (TIA), and cerebral infarction without residual deficits; Z79.4 Long term (current) use of insulin; Z79.899 Other long term (current) drug therapy; Z88.5 Allergy status to narcotic agent; Z88.2 Allergy status to sulfonamides; W01.0XXA Fall on same level from slipping, tripping and stumbling without subsequent striking against object, initial encounter; Y92.009 Unspecified place in unspecified non-institutional (private) residence as the place of occurrence of the external cause
CPT/HCPCS: 73030; 73060; J2270

== ENCOUNTER → 2020-10-14 | Outpatient (CLI) | payer MEDICARE, MEDICAID ==
--- NOTE | 2020-10-14 11:34 | RAD ---
EXAM DESCRIPTION: Humerus,Left CLINICAL HISTORY: UNSPECIFIED FRACTURE OF UPPER END OF LEFT HUMERUS COMPARISON: 27 September 2020 TECHNIQUE: 2 views left FINDINGS: A comminuted fracture the proximal shaft of the left humerus is observed. Slight distraction of the fracture fragments is observed. No significant displacement or angulation is detected. Orthopedic anchors are observed in the left proximal humerus. No significant change in alignment is observed and compared to the previous exam. No significant callus formation is detected. IMPRESSION: Comminuted fracture the proximal shaft of the left humerus unchanged from the prior exam. Electronically signed by: Aaron Lockhart MD 10/14/2020 11:32 AM [facility]
== END ==
LOC: RAD 08:59
PROVIDERS: ATTEND Orthopaedic Surgery
DX: S42.202D Unspecified fracture of upper end of left humerus, subsequent encounter for fracture with routine healing (principal)